=== PATIENT | male | born 1940 | race Caucasian/White ===

== ENCOUNTER 2018-02-22 02:05 | Day surgery (SDC) | payer MEDICARE, BC ==
[~2018-02-22] VITALS: Ht 163.8 cm; Wt 77.1 kg
[~2018-02-22 02:05] MED LIST: AMLO-101 PO; AMLO-96 PO; ASPI-1471 PO; ASPI81TA94 PO; AZIT-17 PO; CAR6.25 PO; CARV12.578 PO; CARV3.1255 PO; CEPH-13 PO; CHOL10005 PO; CHOL200022 PO; ENAL20TA99 PO; FOLI0.4T56 PO; FOLI20CA2 PO; HYDR-2966 PO; LOPE1LIQ49 PO; MAGN100T PO; MAGN27TA6 PO; METH4TAB66 PO; MULT-1287 PO; MULT-865 PO; NIAC500C12 PO; NIAC500T85 PO; OMEG-11 PO; PHEN200T32 PO; PNEU0.5D3 IM; PROP160C20 PO; TAMS0.4C25 PO
[2018-02-22] MEDS ORDERED: PROPOFOL EMUL(*) 10MG/ML 20 ML 40 ML ONE (08:19)
[2018-02-22] MEDS ORDERED: LIDOCAINE MPF 1% 5 ML VIAL ONE (08:19)
[2018-02-22] MEDS ORDERED: LIDOCAINE/SOD BICARB 8.4% SYR ID ONE (09:00)
[2018-02-22] MEDS ORDERED: NORMOSOL R SOLN(*) 1000 ML BAG 1,000 ML IV PRN (09:00)
[2018-02-22 09:04] VITALS: BP 154/88
[2018-02-22 10:24] VITALS: BP 119/90
--- NOTE | 2018-02-22 10:45 | Short(Outpt) Discharge Summary ---
Discharge Summary Reason for Hosp/Final Diag: (1) Screening for colon cancer Status: Chronic Hospital Course & Plan: Colonoscopy with polypectomy x4 completed without problems. Departure Discharge to: Home, Self Care Discharge Instructions Home Meds Active Scripts Amlodipine Besylate (AMLODIPINE BESYLATE) 5 Mg Tablet, 1 TAB PO BID, #180 TAB 4 Refills Prov:FRANCESCA ESTES MD 11/10/17 Enalapril Maleate (ENALAPRIL MALEATE) 20 Mg Tablet, 20 MG PO BID, #180 TAB 4 Refills Prov:FRANCESCA ESTES MD 09/27/17 Hydrochlorothiazide (HYDROCHLOROTHIAZIDE) 25 Mg Tablet, 1 TAB PO QDAY, #90 TAB 4 Refills Prov:FRANCESCA ESTES MD 09/23/17 Reported Medications Cholecalciferol (Vitamin D3) (VITAMIN D3) 1,000 Unit Tablet, 3 TAB PO QDAY, TAB 08/18/17 Niacin (NIACIN) 500 Mg Tablet, 2 TAB PO BID 02/15/17 Magnesium Amino Acid Chelate (MAGNESIUM) Unknown Strength Tablet, 400 MG PO QDAY 02/15/17 Folic Acid (FOLIC ACID) Unknown Strength Tablet, 400 MCG PO QDAY 02/15/17 Tamsulosin Hcl (FLOMAX) 0.4 Mg Cap.er.24h, 0.4 MG PO QDAY, CAP 02/15/17 Aspirin (ASPIRIN) 81 Mg Tab.chew, 81 MG PO, TAB.CHEW 02/15/17 Diet: Regular Activity: As Tolerated Special Instructions: Your colonoscopy was completed without any problems. I removed 4 polyps from your colon and they were sent to pathology. My office will call you in the next week and let you know what the polyps are and if/when you should have another colonoscopy. ROSITA ABRAHAM MD Feb 22, 2018 10:45
[2018-02-22 10:50] VITALS: BP 116/74
[2018-02-22 10:53] VITALS: BP 115/72
== END 2018-02-22 11:30 | disposition home or self-care (01) ==
LOC: OR 02:05
PROVIDERS: ATTEND Surgery
DX: Z12.11 Encounter for screening for malignant neoplasm of colon (principal); D12.3 Benign neoplasm of transverse colon; D12.0 Benign neoplasm of cecum; D12.2 Benign neoplasm of ascending colon; K57.30 Diverticulosis of large intestine without perforation or abscess without bleeding
CPT/HCPCS: 00811; 45385; 88305; J2001; J2704

== ENCOUNTER → 2019-01-30 | Outpatient (CLI) | payer MEDICARE, BC ==
[~2019-01-30] MED LIST changes: +AMLO-125 PO; -AMLO-96 PO; +CHOL200018 PO; -CHOL200022 PO; +FLU60VIA41 IM; +PANT40TA65 PO
--- NOTE | 2019-01-30 16:05 | EKG ---
[place] [facility] [place] NAME: ALEX BRO : [id number] MR: [id number] V: [id number] EXAM DATE: ORDERING PHYSICIAN: FRANCESCA ESTES TECHNOLOGIST: MELANY Test Reason : CHEST PAIN Blood Pressure : / mmHG Vent. Rate : 074 BPM Atrial Rate : 074 BPM P-R Int : 234 ms QRS Dur : 106 ms QT Int : 398 ms P-R-T Axes : 091 -49 056 degrees QTc Int : 441 ms Sinus rhythm with 1st degree AV block with premature atrial complexes Left anterior fascicular block Abnormal ECG When compared with ECG of 18-JUL-2017 09:14, Sinus rhythm has replaced Junctional rhythm Vent. rate has decreased BY 49 BPM Confirmed by FRANCESCA ESTES ([id number]) on 01/31/2019 3:33:45 PM Referred By: WILNER Confirmed By:FRANCESCA ESTES
[2019-01-30 16:22] LABS: PLATELET COUNT, AUTOMATED 217 K/uL (150-450)
== END ==
LOC: RESP 15:49
PROVIDERS: ATTEND Internal Medicine
DX: R07.9 Chest pain, unspecified (principal); I10 Essential (primary) hypertension; R94.31 Abnormal electrocardiogram [ECG] [EKG]
CPT/HCPCS: 36415; 82040; 82247; 82310; 82374; 82435; 82565; 82947; 83735; 84075; 84132; 84155; 84295; 84443; 84450; 84460; 84484; 84520; 85025

== ENCOUNTER → 2019-02-12 | Outpatient (CLI) | payer MEDICARE, BC ==
[~2019-02-12] MED LIST changes: +REGADENOSON 0.4 MG/5 ML SYR ONE
--- NOTE | 2019-02-12 17:39 | RADIOLOGY IMAGING REPORT ---
FACILITY: [facility] PATIENT NAME: Aashish Pacheco : 1940 MR: [id number] V: [id number] EXAM DATE: ORDERING PHYSICIAN: FRANCESCA ESTES TECHNOLOGIST: Location[place] [facility] [place] Patient: Aashish Pacheco : 1940 Visit/Account:[id number] Date of Sevice: 02/12/2019 EXAMINATION: Single isotope SPECT imaging with regadenoson infusion and gated SPECT imaging. DATE OF EXAMINATION: 02/12/19. DATE OF INTERPRETATION: 02/12/2019. REQUESTING PHYSICIAN: FRANCESCA ESTES. INDICATION: The patient is a 78-year-old male evaluated for chest pain. PROCEDURE: After informed consent the patient received an intravenous injection of 12.1 mCi of Tc-99 m sestamibi followed at an appropriate time interval by rest imaging. The patient then subsequently received an intravenous infusion of 0.4 mg of regadenoson per protocol without complication. Resting heart rate was 70 bpm with a peak heart rate of 94 bpm. Blood pressure at rest was 138 / 99 and fol lowing infusion was 138 / 39. Baseline EKG demonstrates sinus rhythm with left anterior fascicular b lock. There were no EKG changes of ischemia following infusion. Symptoms were nonspecific. The pat ient then received an intravenous injection of 30.0 mCi of Tc-99m sestamibi followed by stress imagin g. RAW DATA: Examination of the summed raw data revealed a excellent quality study. No significant extr acardiac tracer uptake. MYOCARDIAL PERFUSION: The tomographic images demonstrate normal myocardial perfusion uptake in all s egments. No evidence of inducible ischemia or prior infarction. No transient ischemic dilation. GATED IMAGES: The gated images demonstrate LVEF 69% with normal regional wall motion.. IMPRESSION: 1. Nondiagnostic pharmacologic stress EKG 2. Normal myocardial perfusion scan. No evidence of inducible ischemia or infarction. 3. Normal LV systolic function; LVEF 69%. 4. Based on the results of this exam, the patient appears to be at low risk for future cardiovascular events. Report Dictated By: Pawel Medina at 02/12/2019 5:28 PM Report E-Signed By: Pawel Medina at 02/12/2019 5:34 PM WSN:[id number]
--- NOTE | 2019-02-13 08:24 | RT STRESS TEST REPORT ---
FACILITY: [facility] PATIENT NAME: ALEX BRO : [id number] MR: [id number] V: [id number] EXAM DATE: ORDERING PHYSICIAN: FRANCESCA ESTES TECHNOLOGIST: [employer] Time: 2019-02-12 09:18:25 Total Exercise Time: 00:01:00 Test Indications: Chest Discomfort Medications: see nuc med list Protocol: LEXISCAN Max HR: 094 BPM 67% of Pred: 140 BPM Max BP: 138/079 mmHG Max Work Load: 1.0 METS Confirmed by FRANCESCA ESTES ([id number]), editor managing newspaper PORSHA GRANADOS ([id number]) on 02/13/2019 8:21:15 AM Referred By: FRANCESCA ESTES Overread By: FRANCESCA ESTES
== END ==
LOC: NUC 02-07 08:12
PROVIDERS: ATTEND Internal Medicine
DX: R07.9 Chest pain, unspecified (principal)
CPT/HCPCS: 78452; 93017; A9500; J2785

== ENCOUNTER → 2019-02-23 | Outpatient (CLI) | payer MEDICARE, BC ==
[~2019-02-23] MED LIST changes: -REGADENOSON 0.4 MG/5 ML SYR ONE
--- NOTE | 2019-02-23 09:05 | RADIOLOGY IMAGING REPORT ---
[place] [facility] [place] Aashish Pacheco : 1940 MR: [id number] V: [id number] EXAM DATE: ORDERING PHYSICIAN: FRANCESCA ESTES TECHNOLOGIST: [place] [facility] [place]ashish P[place] : 1940 Visit/Account:[id number] Date of Sevice: 02/23/2019 LIVER History: 78-year-old male with possible abnormality on nuclear medicine study for heart. Evaluate li jocy. Comparison study: Stress cardiac study from February 12, 2019 showing abnormality in the liver. Procedure: There has been satisfactory and complete grayscale ultrasonic evaluation of the abdomen. Findings: Liver: The liver has diffusely increased echotexture. No liver lesions are identified. There is no ascites. There is hepatopedal blood flow in the main portal vein. Biliary: There are multiple calcified gallstones in an otherwise normal gallbladder. There is no son ographic Cruz's sign. The gallbladder wall thickness is normal at 2.9 mm. The common bile duct cathy sures 2.9 mm. Pancreas: The pancreas is not optimally seen, but from what can be seen there are no peripancreatic f luid collections. Right kidney: There is no hydronephrosis involving the right kidney. No solid masses are seen. IMPRESSION: 1. The liver has diffusely increased echotexture, but there is no finding of a solid mass in the mohinder er to explain the area of decreased uptake noted on the cardiac myocardial SPECT scan. 2. Cholelithiasis without findings of acute cholecystitis or biliary ductal dilatation. Report Dictated By: Cj Clark MD at 02/23/2019 8:54 AM Report E-Signed By: Cj Clark MD at 02/23/2019 8:58 AM WSN:[email or web address]
== END ==
LOC: US 01:33
PROVIDERS: ATTEND Internal Medicine
DX: K80.20 Calculus of gallbladder without cholecystitis without obstruction (principal)
CPT/HCPCS: 76705